=== PATIENT | female | born 1955 | race Caucasian/White ===

== ENCOUNTER 2023-04-01 13:08 | Emergency (ER) | payer MEDICARE, OTHER, SELFPAY ==
--- NOTE | ~2023-04-01 | XR_ITS ---
XR chest 2V DATE: 04/01/2023 14:07 INDICATION: Chest pain and right arm pain TECHNIQUE: PA and lateral views COMPARISON: None FINDINGS: Normal heart size. No hilar or mediastinal enlargement. There is minimal atelectasis or fibrotic change at the lateral left lung base. No pulmonary infiltrate or consolidation, pleural effusion or pulmonary vascular congestion or pneumo thorax is noted otherwise. Prominent degenerative disease in the lower cervical spine. Scoliosis and degenerative change of the thoracic and lumbar spine. IMPRESSION: Minimal atelectasis or fibrotic change at the lateral left lung base; otherwise no active cardiopulmonary disease Reviewed, dictated and finalized at location B. [place] REPRESENTATIVE IMPRESSION: Minimal atelectasis or fibrotic change at the lateral left lung bas e; otherwise no active cardiopulmonary disease
--- NOTE | 2023-04-01 13:09 | ECG_ITS ---
Measurements Intervals [place] Rate: 72 P: 64 PA: 164 QRS: -7 QRSD: 102 T: 43 QT: 388 QTc: 426 Interpretive Statements SINUS RHYTHM WITH SINUS ARRHYTHMIA LEFT ATRIAL ENLARGEMENT INCOMPLETE RIGHT BUNDLE BRANCH BLOCK DELAYED PRECORDIAL R/S TRANSITION BASELINE ARTIFACT- I, III, AVL BORDERLINE ECG NO PREVIOUS ECG AVAILABLE FOR COMPARISON Electronically Signed On 04-01-2023 13:21:58 BABY COUNSELOR by Oscar Herr D.O.
[2023-04-01 13:11] VITALS: BP 170/89; PULSE 76; RESP 18; TEMP 36.3; O2SAT 100
[2023-04-01 13:30] LABS: Basophils Absolute Auto 0.1 K/mm3 (0.0-0.1); Basophils Percent Auto 0.8 % (0.2-1.2); Eosinophils Absolute Auto 0.3 K/mm3 (0-0.3); Eosinophils Percent Auto 4.1 % (0-4.4); Hematocrit 41.9 % (37.0-47.0); Hemoglobin 13.8 g/dL (12.0-15.0); Immature Granulocyte Absolute 0.01 K/mm3 (0.00-0.031); Immature Granulocyte Percent A 0.1 % (0-0.5); Lymphocytes Percent Auto 31.8 % (18.3-44.2); Mean Corpuscular HGB Conc 32.9 g/dl (32-36); Mean Corpuscular Hemoglobin 29.5 pg (26-34); Mean Corpuscular Volume 89.5 fl (80-100); Mean Platelet Volume 10.6 fl (7.4-10.4); Monocytes Absolute Auto 0.5 K/mm3 (0.1-0.6); Monocytes Percent Auto 7.5 % (2.6-8.5); Neutrophils Percent Auto 55.7 % (45.5-73.1); Platelet Count Result 282 k/mm3 (150-375); Red Blood Count 4.68 M/mm3 (4.2-5.4); Red Cell Distribution Width 13.7 % (11.5-14.5); White Blood Count 7.2 K/mm3 (4.5-10.0)
[2023-04-01 13:41] LABS: INR 0.9; Partial Thromboplastin Time 27.8 SECONDS (22.3-36.8); Prothrombin Time 12.9 Seconds (11.1-14.7)
[2023-04-01 13:44] LABS: Alanine Aminotransferase 28 U/L (6-35); Albumin Level 4.5 g/dL (3.5-5.1); Alkaline Phosphatase 100 U/L (38-126); Anion Gap 9 mmol/L (8-16); Aspartate Amino Transferase 30 U/L (14-36); Bilirubin,Total 0.6 mg/dL (0.2-1.3); Blood Urea Nitrogen 14 mg/dL (7-17); Calcium 9.6 mg/dL (8.4-10.2); Carbon Dioxide 29 mmol/L (22-30); Chloride 102 mmol/L (98-107); Estimated CRCL calculation 59 ml/min; Estimated Glomerular Filt Rate > 60; Glucose 104 mg/dL (65-110); Lipase 90 U/L (23-300); Potassium 4.3 mmol/L (3.4-5.0); Sodium 140 mmol/L (137-145)
[2023-04-01 13:56] LABS: Troponin I < 0.012 ng/mL (0.000-0.034)
--- NOTE | 2023-04-01 14:37 | ED.GENADULT ---
HPI - General Adult General Chief complaint: Chest Pain <Mimi Rice July, Last Filed: 04/09/23 11:51> Stated complaint: chest pain <Mimi Rice July, Last Filed: 04/09/23 11:51> Time Seen by Provider: 04/01/23 20:30 <Mimi Rice July, - Last Filed: 04/09/23 11:51> History of Present Illness HPI narrative: Focused HPI: 1437 Darryl Herbert is a 67 y/o female with PMhx HTN/ HLD / who was recently started on Atorvastatin and she was told that it might cause muscle pain and to let her PCP know if that happens. She states that she started the atorvastatin 3 days ago and that is also when she started to have left sided chest pain and pain moving under and down left arm and constant pain to the left upper back. She thought it was related to the atorvastatin and the pain has been off and on the past three days she notices the pain to be the most intense about 2 hours after taking the medication, but she still noticed the pain when she woke up in the morning. She messaged her PCP today and let them know that she doesn't want to take the atorvastatin because she is having chest pain and they told her to go to the ER. Currently pain is at a 3/10. Denies SOB. Hx of mother having a DC at the age of 54. GENERAL: Well-appearing, well-nourished, and in no acute distress. HEAD: Normocephalic, atraumatic. CHEST: Clear to auscultation. ?No respiratory distress. HEART: Regular rate and rhythm.? NEURO: ?Alert and oriented x3. Patient screened in triage and initial orders placed.? ?Additional care and disposition to be based upon?diagnostic testing and treatment. <Mimi Rice July, - Last Filed: 04/09/23 11:51> Related Data Allergies/adverse reactions: Allergies Allergy/AdvReac Type Severity Reaction Status Date / Time No Known Allergies Allergy Verified 04/01/23 13:08 <Mimi Rice July, - Last Filed: 04/09/23 11:51> Review of Systems Review of Systems: All systems reviewed & are unremarkable except as noted in HPI and below <Mimi Rice May, [employer] - Last Filed: 04/09/23 11:51> Exam Narrative: APPEARANCE: No apparent distress. pleasant/polite during the interview Head: atraumatic. EYES: EOMI, NOSE: Atraumatic NECK: Trachea midline RESPIRATORY: No increased rate of breathing, clear to auscultation CARDIOVASCULAR: RRR,no peripheral edema ABDOMINAL: Non-distended MUSCULOSKELETAl: No obvious deformities NEURO: Alert. Moving 4/4 extremities SKIN:: Warm, dry. Normal color PSYCHIATRIC: Normal affect <Javier Oglesby MD - Last Filed: 04/01/23 21:41> Course Vital Signs Vital signs: Vital Signs Temperature 36.3 C L 04/01/23 13:11 Pulse Rate 76 04/01/23 13:11 Respiratory Rate 18 04/01/23 13:11 Blood Pressure 170/89 H 04/01/23 13:11 Pulse Oximetry 100 04/01/23 13:11 Oxygen Delivery Room Air 04/01/23 13:11 Temperature 37.1 C 04/01/23 16:13 Pulse Rate 73 04/01/23 21:56 Respiratory Rate 15 04/01/23 21:56 Blood Pressure 144/79 H 04/01/23 21:56 Pulse Oximetry 97 04/01/23 21:56 Oxygen Delivery Room Air 04/01/23 13:11 <Mimi JeisonBeth July, [employer] - Last Filed: 04/09/23 11:51> Vital Signs Temperature 36.3 C L 04/01/23 13:11 Pulse Rate 76 04/01/23 13:11 Respiratory Rate 18 04/01/23 13:11 Blood Pressure 170/89 H 04/01/23 13:11 Pulse Oximetry 100 04/01/23 13:11 Oxygen Delivery Room Air 04/01/23 13:11 Temperature 37.1 C 04/01/23 16:13 Pulse Rate 73 04/01/23 21:56 Respiratory Rate 15 04/01/23 21:56 Blood Pressure 144/79 H 04/01/23 21:56 Pulse Oximetry 97 04/01/23 21:56 Oxygen Delivery Room Air 04/01/23 13:11 <Javier Oglesby MD - Last Filed: 04/01/23 21:41> Medical Decision Making [facility] Narrative Medical decision making narrative: -Course: 67-year-old female presenting with left-sided chest shoulder and arm pain 3 days after starting atorvastatin. Chest pain workup here in the department was negative.
[2023-04-01] MEDS: ASPIRIN 81 MG CHEWABLE TABLET 324 MG PO (16:11)
--- NOTE | 2023-04-01 16:12 | ECG_ITS ---
Measurements Intervals [place] Rate: 63 P: 69 MI: 158 QRS: 34 QRSD: 103 T: 53 QT: 404 QTc: 416 Interpretive Statements SINUS RHYTHM WITH SINUS ARRHYTHMIA POSSIBLE LEFT ATRIAL ENLARGEMENT INCOMPLETE RIGHT BUNDLE BRANCH BLOCK DELAYED PRECORDIAL R/S TRANSITION BASELINE ARTIFACT- I, II, AVR, AVL BORDERLINE ECG COMPARED TO ECG 04/01/2023 13:15:21 NO SIGNIFICANT CHANGES Electronically Signed On 04-01-2023 17:09:18 [employer] by Oscar Herr D.O.
[2023-04-01 16:13] VITALS: BP 141/76; PULSE 74; RESP 18; TEMP 37.1; O2SAT 100
[2023-04-01 16:51] LABS: Troponin I < 0.012 ng/mL (0.000-0.034)
[2023-04-01 20:10] VITALS: BP 157/90; PULSE 62; RESP 17; O2SAT 97
--- NOTE | 2023-04-01 20:15 | PC.NURSE ---
Pt reports pain has subsided.
[2023-04-01 20:53] LABS: Troponin I < 0.012 ng/mL (0.000-0.034)
[2023-04-01 21:00] LABS: Creatine Kinase 36 U/L (30-135)
[2023-04-01 21:18] VITALS: BP 165/88; PULSE 64; RESP 16; O2SAT 97
[2023-04-01 21:56] VITALS: BP 144/79; PULSE 73; RESP 15; O2SAT 97
== END 2023-04-01 22:02 | disposition home or self-care (01) ==
PROVIDERS: Emergency Medicine; Emergency Provider Emergency Medicine
DX: R07.9 Chest pain, unspecified (principal); M79.18 Myalgia, other site; T46.6X5A Adverse effect of antihyperlipidemic and antiarteriosclerotic drugs, initial encounter; I10 Essential (primary) hypertension; E78.5 Hyperlipidemia, unspecified
CPT/HCPCS: 36415; 71046; 80053; 82550; 83690; 84484; 85025; 85610; 85730; 93005; 99284; A9270